=== PATIENT | female | born 1950 | race Caucasian/White ===

== ENCOUNTER → 2017-04-15 | Outpatient (CLI) | payer OTHER ==
[~2017-04-15] MED LIST: ASPI-461 PO; B-COCAP2 PO; CALC-27 PO; DIGE1CAP10 PO; LACT1CAP6 PO; METO1TAB31 PO; MULT-506 PO; OMEG12006 PO; PRMVC PV; [UNRECOGNIZED DRUG - OTHER] PO; [UNRECOGNIZED DRUG - OTHER] PO
--- NOTE | 2017-04-15 12:56 | MAMMOGRAPHY REPORT ---
BILATERAL DIGITAL SCREENING MAMMOGRAM WITH CAD: 04/15/2017 CLINICAL HISTORY: Routine screening. Patient has no complaints. TECHNIQUE: Current study was also evaluated with a Computer Aided Detection (CAD) system. Bilateral CC and MLO views were obtained. COMPARISON: Comparison is made to exams dated: 04/09/2016 mammogram, 04/07/2015 mammogram, 04/05/2014 m ammogram, 03/13/2013 mammogram, 03/08/2012 mammogram, and 03/03/2011 mammogram - [facility] enter. BREAST COMPOSITION: There are scattered areas of fibroglandular density in both breasts. FINDINGS: No suspicious masses, calcifications, or areas of architectural distortion are noted in ei ther breast. There has been no significant interval change compared to prior exams. IMPRESSION: ACR BI-RADS CATEGORY 1: NEGATIVE There is no mammographic evidence of malignancy. A 1 year screening mammogram is recommended. The pa tient will receive written notification of the results. Approximately 10% of breast cancers are not detected with mammography. A negative mammographic report should not delay biopsy if a clinically suggestive mass is present. Lisa Welsh M.D. /:04/15/2017 10:39:47 Breakfast And Room Attendant: Aleida THOMASON(Venkat)(M), [facility] letter sent: Normal 1/2 BI-RADS Code: ACR BI-RADS Category 1: Negative
== END | disposition home or self-care (01) ==
LOC: C.MAMM 07:56
PROVIDERS: ATTEND Internal Medicine
DX: Z12.31 Encounter for screening mammogram for malignant neoplasm of breast (principal)

== ENCOUNTER 2017-09-12 13:03 | Emergency (ER) | payer OTHER ==
[~2017-09-12] VITALS: Ht 167.6 cm; Wt 75.6 kg
[~2017-09-12 13:03] MED LIST changes: +METO-478 PO; -METO1TAB31 PO
[2017-09-12 13:10] VITALS: TEMP 36.7; Ht 167.6 cm; Wt 75.6 kg
[2017-09-12] MEDS ORDERED: KETOROLAC TROMETHAMINE 30 MG/ML VIAL IV STA (13:55)
[2017-09-12] MEDS ORDERED: SODIUM CHLORIDE 0.9% 1000ML 1,000 ML IV STA (13:55)
[2017-09-12] MEDS ORDERED: ONDANSETRON INJ 2 MG/ML 2 ML VIAL IV STA (13:55)
[2017-09-12 14:10] LABS: BASO % 0.4 %; BASO ABS # 0.03 K/uL (0-0.2); COMPLETE YES; EOS % 0.6 %; HEMATOCRIT 39.1 % (37-47); IG% 0.4 %; LYMPH % 25.4 %; LYMPH ABS # 1.98 K/uL (1.2-3.4); MEAN CELL VOLUME 92.7 fL (80-100); MEAN CORPUSCULAR HEMOGLOBIN 30.8 pg (25-34); MEAN CORPUSCULAR HGB CONC 33.2 g/dl (32-36); MEAN PLATELET VOLUME 10.9 fL (7.4-10.4); MONO % 10.7 %; NEUT % 62.5 %; PLATELET COUNT 255 K/uL (130-400); RED BLOOD COUNT 4.22 M/uL (4.2-5.4); WHITE BLOOD COUNT 7.78 K/uL (4.8-10.8)
[2017-09-12 14:18] LABS: ALT/SGPT 37 U/L (12-78); BLOOD UREA NITROGEN 13 mg/dl (7-18); BUN/CREATININE RATIO 19.1 (10-20); CALCIUM 8.8 mg/dl (8.5-10.1); CARBON DIOXIDE 28 mmol/L (21-32); CHLORIDE 101 mmol/L (98-107); CREATININE 0.69 mg/dl (0.60-1.20); GLUCOSE 100 mg/dl (70-99); POTASSIUM 3.7 mmol/L (3.5-5.1); SODIUM 136 mmol/L (136-145)
[2017-09-12 14:21] LABS: ALKALINE PHOSPHATASE 73 U/L (45-117); AST/SGOT 20 U/L (15-37)
--- NOTE | 2017-09-12 14:45 | DIAGNOSTIC IMAGING REPORT ---
ABD/PELVIS NO IV OR ORAL CONT CLINICAL HISTORY: 67 years-old Female presenting with ABDOMINAL PAIN/GI, left lower quadrant. TECHNIQUE: Multidetector CT of the abdomen and pelvis was performed without the use of intravenous contrast. IV contrast: None. A dose lowering technique was used consistent with the principles of ALARA (as low as reasonably achievable). COMPARISON: 07/30/2015. CT DOSE (mGy.cm): The estimated cumulative dose is 606.57 mGy.cm. FINDINGS: Extruder Operator Vertical topogram: Unremarkable. Lung bases: Minimal basilar opacities, likely atelectasis. Normal heart size. No pericardial or pleural effusion. Liver: Normal morphology. Normal density. Few well-defined hypodensities in the liver, indeterminate but likely hepatic cysts. Biliary: No gross biliary ductal dilatation allowing for noncontrast technique. Normal gallbladder. Pancreas: Mild parenchymal atrophy. Focal fatty invagination noted in the pancreatic head. Spleen: Normal noncontrast appearance. Adrenal glands: Normal noncontrast appearance. Kidneys and ureters: Focal cortical thinning along the posterior medial aspect of the upper pole the left kidney may indicate reflux nephropathy. No nephrolithiasis. Normal noncontrast appearance of the kidneys. Ureters normal. Bladder: Normal. Pelvic organs: Uterus surgically absent. Bowel: Moderate stool burden throughout normal caliber colon. No bowel obstruction. Peritoneal cavity: Trace free fluid in the pelvis. Lymph nodes: No gross lymphadenopathy allowing for noncontrast technique. Vasculature: Atherosclerosis of the normal caliber abdominal aorta. Abdominal wall: Normal. Musculoskeletal: Degenerative change. IMPRESSION: 1. Moderate stool burden throughout the colon most consistent with constipation. No other evidence of acute intra-abdominal pathology. Electronically signed by: Jason Pearson M.D. 09/12/2017 2:44 PM Dictated Date/Time: 09/12/2017 2:36 PM
[2017-09-12 14:49] LABS: URINE APPEARANCE CLEAR (CLEAR); URINE BILIRUBIN NEG (NEG); URINE COLOR YELLOW; URINE EPITHELIAL CELL AUTO 20-30 /lpf (0-5); URINE NITRITE NEG (NEG); URINE PH 7.5 (4.5-7.5); URINE SPECIFIC GRAVITY 1.009 (1.000-1.030); UROBILINOGEN NEG (NEG); ZZUR CULT IF INDIC CLEAN CATCH NO
[2017-09-12 14:51] LABS: MANUAL MICROSCOPIC REQUIRED? NO; REVIEW REQ? NO
[2017-09-12] MEDS ORDERED: B-CO1CAP17 PO (15:07)
--- NOTE | 2017-09-12 15:53 | EMERGENCY ROOM VISIT NOTE ---
History Report prepared by Alondraibroseline: David Zuñiga Under the Supervision of: Dr. Daniel Levine D.O. First contact with patient: 13:50 Chief Complaint: ABDOMINAL PAIN Stated Complaint: LEFT LOWER QUARDRANT PAIN, NAUSEA Nursing Triage Summary: hx diverticulitis patient c/o left lower abdominal pain and nausea since this AM. History of Present Illness The patient is a 67 year old female who presents to the Emergency Room with complaints of left side pain at 7 hours ago. The patient reports that the left sided abdominal pain has worsened. Per the patient, she states that she had a normal bowel movement yesterday. The patient states she has nausea, depressed dietary intake, and low back pain. She denies any urinary symptoms. Of note, the patient states she had a volvulus in 2014 and states that this pain is different from her previous episode. The patient recently had a colonoscopy without any significant findings. Of note, the patient states that she has a surgical history of a hysterectomy and appendectomy and currently takes a baby Aspirin daily. Source of History: patient Onset: 7 hours ago Position: abdomen (LLQ) Timing: constant Associated Symptoms: + nausea, + back pain, No urinary symptoms Review of Systems See HPI for pertinent positives & negatives. A total of 10 systems reviewed and were otherwise negative. Family History Diabetes mellitus FH: CHF (congestive heart failure) FH: COPD (chronic obstructive pulmonary disease) FH: breast cancer Social History Smoking Status: Never Smoker Drug Use: none Marital Status: Housing Status: lives with family Occupation Status: retired Current/Historical Medications Scheduled Aspirin (Aspirin), 81 MG PO HS Cholecalciferol (Vitamin D-[address]), 5,000 UNITS PO QAM Digestive Enzymes (Digestive Enzyme), 1 CAP PO DINNER Estrogens, Conjugated (Premarin), 1 APPLN PV UD Lactobacillus (Probiotic), 1 CAP PO HS Metoprolol Succinate (Toprol Xl), 12.5 MG PO HS Multivitamin (Multivitamin), 1 TAB PO BID [place]-3 Fatty Acids ([place] 3), 1 CAP PO Q2D Vitamin B Cmplx/Vitc/Folic Ac (Nephrocaps), 1 CAP PO DAILY Allergies Coded Allergies: Benzoin (Verified Allergy, Mild, SKIN ALLERGY, 09/12/17) Meperidine (Verified Allergy, Mild, TACHYCARDIA, RASH, 09/12/17) Physical Exam Vital Signs Date Time Temp Pulse Resp B/P (MAP) Pulse Ox O2 Delivery O2 Flow Rate FiO2 09/12/17 14:10 73 18 165/78 99 Room Air 09/12/17 13:10 36.7 95 18 172/106 98 Room Air Physical Exam CONSTITUTIONAL/VITAL SIGNS: Reviewed / noted above. GENERAL: Non-toxic in appearance. INTEGUMENTARY: Warm, dry, and [place]. HEAD: Normocephalic. EYES: without scleral icterus or trauma. ENT/OROPHARYNX: clear and moist. LYMPHADENOPATHY/NECK: Is supple without lymphadenopathy or meningismus. RESPIRATORY: Lungs clear and equal. CARDIOVASCULAR: Regular rate and rhythm. GI/ABDOMEN: Soft and nontender. No organomegaly or pulsatile mass. No rebound or guarding. Normal bowel sounds. EXTREMITIES: Warm and well perfused. BACK: No CVA tenderness. NEUROLOGICAL: Intact without focal deficits. PSYCHIATRIC: normal affect. MUSCULOSKELETAL: Normally developed with good muscle tone. Medical Decision & Procedures ER Provider Diagnostic Interpretation: Radiology results as stated below per my review and radiologist interpretation: ABD/PELVIS NO IV OR ORAL CONT CLINICAL HISTORY: 67 years-old Female presenting with ABDOMINAL PAIN/GI, left lower quadrant. TECHNIQUE: Multidetector CT of the abdomen and pelvis was performed without the use of intravenous contrast. IV contrast: None. A dose lowering technique was used consistent with the principles of ALARA (as low as reasonably achievable). COMPARISON: 07/30/2015. CT DOSE (mGy.cm): The estimated cumulative dose is 606.57 mGy.cm. FINDINGS: Equity Manager topogram: Unremarkable. Lung bases: Minimal basilar opacities, likely atelectasis. Normal heart size. No pericardial or pleural effusion. Liver: Normal morphology. Normal density. Few well-defined hypodensities in the liver, indeterminate but likely hepatic cysts. Biliary: No gross biliary ductal dilatation allowing for noncontrast technique. Normal gallbladder. Pancreas: Mild parenchymal atrophy. Focal fatty invagination noted in the pancreatic head. Spleen: Normal noncontrast appearance. Adrenal glands: Normal noncontrast appearance. Kidneys and ureters: Focal cortical thinning along the posterior medial aspect of the upper pole the left kidney may indicate reflux nephropathy. No nephrolithiasis. Normal noncontrast appearance of the kidneys. Ureters normal. Bladder: Normal. Pelvic organs: Uterus surgically absent. Bowel: Moderate stool burden throughout normal caliber colon. No bowel obstruction. Peritoneal cavity: Trace free fluid in the pelvis. Lymph nodes: No gross lymphadenopathy allowing for noncontrast technique. Vasculature: Atherosclerosis of the normal caliber abdominal aorta. Abdominal wall: Normal. Musculoskeletal: Degenerative change. IMPRESSION: 1. Moderate stool burden throughout the colon most consistent with constipation. No other evidence of acute intra-abdominal pathology. Electronically signed by: Jason Pearson M.D. 09/12/2017 2:44 PM Dictated Date/Time: 09/12/2017 2:36 PM Laboratory Results 09/12/17 13:25 Red Blood Count 4.22, Mean Corpuscular Volume 92.7, Mean Corpuscular Hemoglobin 30.8, Mean Corpuscular Hemoglobin Concent 33.2, Mean Platelet Volume 10.9, Neutrophils (%) (Auto) 62.5, Lymphocytes (%) (Auto) 25.4, Monocytes (%) (Auto) 10.7, Eosinophils (%) (Auto) 0.6, Basophils (%) (Auto) 0.4, Neutrophils # (Auto ) 4.86, Lymphocytes # (Auto) 1.98, Monocytes # (Auto) 0.83, Eosinophils # (Auto ) 0.05, Basophils # (Auto) 0.03 09/12/17 13:25 Test 09/12/17 13:25 White Blood Count 7.78 K/uL (4.8-10.8) Red Blood Count 4.22 M/uL (4.2-5.4) Hemoglobin 13.0 g/dL (12.0-16.0) Hematocrit 39.1 % (37-47) Mean Corpuscular Volume 92.7 fL (80-100) Mean Corpuscular Hemoglobin 30.8 pg (25-34) Mean Corpuscular Hemoglobin Concent 33.2 g/dl (32-36) Platelet Count 255 K/uL (130-400) Mean Platelet Volume 10.9 fL (7.4-10.4) Neutrophils (%) (Auto) 62.5 % Lymphocytes (%) (Auto) 25.4 % Monocytes (%) (Auto) 10.7 % Eosinophils (%) (Auto) 0.6 % Basophils (%) (Auto) 0.4 % Neutrophils # (Auto) 4.86 K/uL (1.4-6.5) Lymphocytes # (Auto) 1.98 K/uL (1.2-3.4) Monocytes # (Auto) 0.83 K/uL (0.11-0.59) Eosinophils # (Auto) 0.05 K/uL (0-0.5) Basophils # (Auto) 0.03 K/uL (0-0.2) RDW Standard Deviation 45.2 fL (36.4-46.3) RDW Coefficient of Variation 13.5 % (11.5-14.5) Immature Granulocyte % (Auto) 0.4 % Immature Granulocyte # (Auto) 0.03 K/uL (0.00-0.02) Urine Color YELLOW Urine Appearance CLEAR (CLEAR) Urine pH 7.5 (4.5-7.5) Urine Specific [place] 1.009 (1.000-1.030) Urine Protein NEG (NEG) Urine Glucose (UA) NEG (NEG) Urine Ketones NEG (NEG) Urine Occult Blood NEG (NEG) Urine Nitrite NEG (NEG) Urine Bilirubin NEG (NEG) Urine Urobilinogen NEG (NEG) Urine Leukocyte Esterase NEG (NEG) Urine WBC (Auto) 0 /hpf (0-5) Urine RBC (Auto) 0-4 /hpf (0-4) Urine Hyaline Casts (Auto) 0 /lpf (0-5) Urine Epithelial Cells (Auto) 20-30 /lpf (0-5) Urine Bacteria (Auto) NEG (NEG) Anion Gap 7.0 mmol/L (3-11) Est Creatinine Clear Calc Drug Dose 79.9 ml/min Estimated GFR () 102.9 Estimated GFR (Non- 88.8 BUN/Creatinine Ratio 19.1 (10-20) Calcium Level 8.8 mg/dl (8.5-10.1) Total Bilirubin 0.4 mg/dl (0.2-1) Direct Bilirubin < 0.1 mg/dl (0-0.2) Aspartate Amino Transf (AST/SGOT) 20 U/L (15-37) Alanine Aminotransferase (ALT/SGPT) 37 U/L (12-78) Alkaline Phosphatase 73 U/L (45-117) Total Protein 7.5 gm/dl (6.4-8.2) Albumin 4.3 gm/dl (3.4-5.0) Lipase 190 U/L (73-393) Laboratory results as stated above per my review. Medications Administered Medications (Trade) Dose Ordered Sig/Shae Route Start Time Stop Time Status Last Admin Dose Admin Sodium Chloride 1,000 ml @ 999 mls/hr Q1H1M STAT IV 09/12/17 13:55 09/12/17 14:55 DC 09/12/17 14:07 999 MLS/HR Ondansetron HCl (Zofran Inj) 4 mg NOW STAT IV 09/12/17 13:55 09/12/17 13:57 DC 09/12/17 14:07 4 MG Ketorolac Tromethamine (Toradol Inj) 30 mg NOW STAT IV 09/12/17 13:55 09/12/17 13:57 DC 09/12/17 14:07 30 MG ED Course 1350: Previous medical records were reviewed. The patient was evaluated in room C4. A complete history and physical examination was performed. 1355: Toradol Inj 30 mg IV, Zofran Inj 4 mg IV, Sodium Chloride 1000 ml @ 999 mls/hr IV. 1545: On reevaluation, the patient is doing well. I discussed the results and findings with the patient. She verbalized agreement of the treatment plan. She was discharged home. Medical Decision Differential considered: pancreatitis, hepatitis, or acute cholecystitis, AAA, UTI, pyelonephritis, kidney stones, diverticulitis, shingles, bowel obstruction mesenteric ischemia, intussusception, hernia This is a 67-year-old female who presents to the ED with a chief complaint of left lower quadrant abdominal pain. The patient states that her symptoms started around 545 this morning. It steadily worsened through the day. She denies having any vomiting but does have occasional nausea and decreased appetite. She has history of hysterectomy and appendectomy. She also denies having a diarrhea. Initial blood pressure was elevated. This is likely related to pain. The patient's physical exam revealed some mild left lower quadrant abdominal tenderness. CT scan reveals constipation. CBC is normal, complete metabolic panel was normal, lipase is negative and urine did not show infection or blood. The patient was treated with IV fluids, IV Toradol and IV Zofran. She was told results. She is felt to be stable for discharge. She was told to return if symptoms worsen over the next 24-48 hours. Medication Reconcilliation Current Medication List: was personally reviewed by me Blood Pressure Screening Patient's blood pressure: Elevated blood pressure Blood pressure disposition: Elevated BP felt to be situational Impression Primary Impression: LLQ abdominal pain Additional Impression: Constipation Scribe Attestation The scribe's documentation has been prepared under my direction and personally reviewed by me in its entirety. I confirm that the note above accurately reflects all work, treatment, procedures, and medical decision making performed by me. Departure Information Dispostion Home / Self-Care Referrals oBbbi Curiel M.D. (PCP) Patient Instructions My [facility] Additional Instructions Return to the emergency department if symptoms worsen over the next 24-48 hours. Take medications as needed for constipation. Problem Qualifiers
[2017-09-12 16:02] VITALS: BP 148/80; PULSE 68; O2SAT 98
== END 2017-09-12 16:10 | disposition home or self-care (01) ==
LOC: C.EDB 13:04 → C.EDC 16:10
DX: R10.32 Left lower quadrant pain (principal); K59.00 Constipation, unspecified

== ENCOUNTER → 2018-04-18 | Outpatient (CLI) | payer OTHER ==
[~2018-04-18] MED LIST changes: +B-CO1CAP17 PO; -B-COCAP2 PO; -[UNRECOGNIZED DRUG - OTHER] PO; -[UNRECOGNIZED DRUG - OTHER] PO
--- NOTE | 2018-04-18 15:21 | MAMMOGRAPHY REPORT ---
BILATERAL DIGITAL SCREENING MAMMOGRAM TOMOSYNTHESIS WITH CAD: 04/18/2018 CLINICAL HISTORY: Routine screening. Patient has no complaints. TECHNIQUE: The study was acquired using full field digital technology and interpreted from soft copy. Breast tomosynthesis in addition to standard 2D mammography was performed. Current study was also ev aluated with a Computer Aided Detection (CAD) system. COMPARISON: Comparison is made to exams dated: 04/15/2017 mammogram, 04/09/2016 mammogram, 04/07/2015 m ammogram, 04/05/2014 mammogram, 03/13/2013 mammogram, and 03/08/2012 mammogram - [facility] enter. BREAST COMPOSITION: There are scattered areas of fibroglandular density in both breasts. FINDINGS: There are stable intramammary lymph nodes in the right upper outer quadrant. Scattered neli ign rounded rim calcifications and stable asymmetry in the lateral right breast. No suspicious mass, architectural distortion or cluster of microcalcifications is seen. IMPRESSION: ACR BI-RADS CATEGORY 1: NEGATIVE There is no mammographic evidence of malignancy. A 1 year screening mammogram is recommended.( 019) The patient will receive written notification of the results. Some breast cancers are not detected with mammography. A negative mammographic report should not richard y biopsy if a clinically suggestive mass is present. Shelby Mederos M.D. ay/:04/18/2018 13:53:49 Paper Production Engineer: RT Leslee(R)(M), [facility] letter sent: Normal 1/2 BI-RADS Code: ACR BI-RADS Category 1: Negative
== END | disposition home or self-care (01) ==
LOC: C.MAMM 08:54
PROVIDERS: ATTEND Internal Medicine
DX: Z12.31 Encounter for screening mammogram for malignant neoplasm of breast (principal)